=== PATIENT | male | born 1970 | race Hispanic/Latino ===

== ENCOUNTER 2020-01-09 12:40 | Emergency (ER) | payer MEDICAID, OTHER ==
[2020-01-09 13:07] LABS: APPEARANCE,URINE Turbid (CLEAR); BILIRUBIN,URINE Moderate (NEGATIVE); COLOR,URINE Red (YELLOW); GLUCOSE, URINE (UA) Negative (NEGATIVE); KETONES,URINE Trace mg/dL (NEGATIVE); LEUKOCYTE ESTERASE ,URINE Large (NEGATIVE); NITRATE,URINE Positive (NEGATIVE); PROTEIN,URINE Trace mg/dL (NEGATIVE); UROBILINOGEN,URINE 0.2 mg/dL (0.2-1.0)
[2020-01-09 13:08] LABS: OCCULT BLOOD,URINE Large (NEGATIVE)
[2020-01-09 13:09] LABS: BACTERIA,URINE Moderate /HPF (None Seen); RBC,URINE Full Field /HPF (0-1); WBC,URINE Full Field /HPF (0-1)
[2020-01-09 13:10] LABS: SQUAMOUS EPITHELIAL CELL,UR None Seen /HPF (0-2)
[2020-01-09] MEDS ORDERED: CEFTRIAXONE SODIUM 1 GM ONE (13:15)
[2020-01-09 13:18] LABS: BASOPHILS % (AUTO) 0.5 % (0.0-5.0); EOSINOPHILS % (AUTO) 0.4 % (0.0-8.0); HEMATOCRIT 47.7 % (42-54); LYMPHOCYTES % (AUTO) 20.7 % (21.0-51.0); MEAN CORPUSCULAR HEMOGLOBIN 30.3 pg (27.0-33.0); MEAN CORPUSCULAR VOLUME 89.2 fL (79-99); MONOCYTES % (AUTO) 4.8 % (3.0-13.0); NEUTROPHILS % (AUTO) 73.4 % (40.0-77.0); PLATELET COUNT (AUTO) 276 K/uL (130-400); RED BLOOD CELL COUNT(AUTO) 5.35 MIL/uL (4.50-6.20); RED CELL DISTRIBUTION WIDTH 12.7 % (11.0-15.5); WHITE BLOOD COUNT (AUTO) 10.2 K/uL (4.8-10.8)
[2020-01-09 13:22] LABS: CREATININE 1.1 mg/dL (0.5-1.5); POTASSIUM 4.1 mmol/L (3.5-5.1)
[2020-01-09] MEDS ORDERED: KETOROLAC TROMETHAMINE 30MG/ML ONE (14:25)
== END 2020-01-09 15:32 | disposition home or self-care (01) ==
LOC: EDH 12:40
DX: N39.0 Urinary tract infection, site not specified (principal); R31.0 Gross hematuria; N48.1 Balanitis; R73.9 Hyperglycemia, unspecified
CPT/HCPCS: 36415; 51701; 80048; 81001; 85025; 87088; 96374; 96375; 99284; J0696; J1885